=== PATIENT | male | born 1990 | race Caucasian/White ===

== ENCOUNTER 2017-01-07 12:54 | Emergency (ER) | payer OTHER ==
[2017-01-07 13:13] VITALS: BP 121/58; PULSE 75; RESP 16; TEMP 97.6
--- NOTE | 2017-01-07 13:22 | ED ---
GI Bleed HPI - General Chief complaint: GI Bleed Stated complaint: blood in stool Source: patient Mode of arrival: ambulatory Limitations: no limitations - History of Present Illness Initial comments: Patient is a 26 year old male who presents for evaluation for blood in his stool and blood with wiping his bottom after a bowel movement this morning. Past medical history as below. This is the third time this is happened in the past. The 2 previous times it was a single episode and spontaneously resolved on its own. This morning he noticed bright red blood in the stool, in the toilet bowl, and with wiping. He has no known history of hemorrhoids. Denies any rectal trauma. He does however state that he sits down on hard steel benches frequently. Denies any abdominal pain nausea or vomiting. No diarrhea. No changes in diet. States he has a old minimal amount of rectal pain. Also denies fever, chills, headache, changes in vision, URI symptoms, shortness breath, cough, chest pain, pain or burning with urination. - Related Data Home Medications Medication Instructions Recorded Confirmed HYDROcodone/APAP 7.5-325MG [[place] 1 tab PO QID 03/20/16 03/24/16 7.5-325] Previous Rx's Medication Instructions Recorded Sulfamethox-Tmp 800-160Mg [Bactrim 2 each PO Q12HR #56 tab 03/20/16 DS 800-160 mg] Acetaminophen-Codeine 300-30mg 1 each PO Q4H PRN #20 tablet 03/24/16 [Tylenol w/codeine #3] Clindamycin HCl [Cleocin] 300 mg PO Q6H #40 cap 03/24/16 Allergies Allergy/AdvReac Type Severity Reaction Status Date / Time amoxicillin [Amoxicillin] Allergy Rash/Hives Verified 03/24/16 15:57 Penicillins Allergy Rash/Hives Verified 03/24/16 15:57 tramadol AdvReac Severe Unknown Verified 03/24/16 15:57 Review of Systems ROS Statement: Those systems with pertinent positive or pertinent negative responses have been documented in the HPI. ROS Other: All systems not noted in ROS Statement are negative. Past Medical History Past Medical History: Seizure Disorder History of Any Multi-Drug Resistant Organisms: MRSA Date of last positivie culture/infection: 10/14/15 MDRO Source:: rt great toe Past Surgical History: No Surgical Hx Reported Additional Past Surgical History / Comment(s): right big toe amputation Past Psychological History: No Psychological Hx Reported Smoking Status: Current every day smoker Past Alcohol Use History: None Reported Past Drug Use History: Marijuana General Exam Limitations: no limitations General appearance: alert, in no apparent distress, other (Well-appearing) Head exam: Present: atraumatic, normocephalic, normal inspection Eye exam: Present: normal appearance, PERRL, EOMI, other (No conjunctival pallor ). Absent: scleral icterus, conjunctival injection, periorbital swelling ENT exam: Present: normal exam, mucous membranes moist Neck exam: Present: normal inspection. Absent: tenderness, meningismus, lymphadenopathy Respiratory exam: Present: normal lung sounds bilaterally. Absent: respiratory distress, wheezes, rales, rhonchi, stridor Cardiovascular Exam: Present: regular rate, normal rhythm, normal heart sounds. Absent: systolic murmur, diastolic murmur, rubs, gallop, clicks GI/Abdominal exam: Present: soft, normal bowel sounds, other (Abdomen is soft and nontender. No peritoneal signs.). Absent: distended, tenderness, guarding , rebound, rigid Rectal exam: Present: hemorrhoids, other (There are 3, nonthrombosed hemorrhoids at the 3:00, 9:00 and 6 o'clock position. No active bleeding. No erythema. No other masses identified.) Extremities exam: Present: normal inspection, full ROM, normal capillary refill. Absent: tenderness, pedal edema, joint swelling, calf tenderness Back exam: Present: normal inspection Neurological exam: Present: alert, oriented X3, CN II-XII intact Psychiatric exam: Present: normal affect, normal mood Skin exam: Present: warm, dry, intact, normal color. Absent: rash Course Vital Signs 01/07/17 13:08 Temperature 97.6 F Pulse Rate 75 Respiratory 16 Rate Blood Pressure 121/58 O2 Sat by Pulse 95 Oximetry Medical Decision Making - Medical Decision Making Patient presents for single episode of rectal bleeding and blood on toilet paper with wiping. There is clear evidence of nonthrombosed hemorrhoids. I discussed with the patient, recommended sitz baths and Preparation H for the irritation. Encouraged fiber. Increase fluids. No physical exam findings of acute blood loss as his vitals are stable with no conjunctival pallor or change in cap refill (<3 seconds on fingers). Close follow-up with primary care physician. Patient voiced understanding. Will follow-up with primary care physician. Discussed signs and symptoms on when to return to emergency department for further investigation. Disposition Clinical Impression: Hemorrhoids Disposition: HOME SELF-CARE Condition: Good Instructions: Hemorrhoids (ED) Referrals: None,Stated [Primary Care Provider] - 1-2 days Richar Busby MD [STAFF PHYSICIAN] - 1-2 days
== END 2017-01-07 13:35 | disposition home or self-care (01) ==
LOC: EC 12:54
DX: K64.8 Other hemorrhoids (principal); F17.200 Nicotine dependence, unspecified, uncomplicated; Z79.891 Long term (current) use of opiate analgesic; Z88.0 Allergy status to penicillin; Z88.6 Allergy status to analgesic agent
CPT/HCPCS: 99284

== ENCOUNTER 2017-02-25 07:03 | Emergency (ER) | payer OTHER ==
[2017-02-25 07:12] VITALS: BP 106/55; PULSE 102; RESP 20; TEMP 98.2
[2017-02-25] MEDS ORDERED: ORPHENADRINE 30 MG/ML 2 ML VIAL IM STA (07:51)
[2017-02-25] MEDS ORDERED: DEXAMETHASONE SOD PHOSPHATE 10 MG/ML 1 ML VIAL IM STA (07:51)
[2017-02-25] MEDS ORDERED: KETOROLAC 60 MG/2 ML VIAL IM STA (07:52)
--- NOTE | 2017-02-25 07:55 | ED ---
Back Pain HPI - General Chief Complaint: Back Pain/Injury Stated Complaint: back pain Time Seen by Provider: 02/25/17 07:30 Source: patient, RN notes reviewed Limitations: no limitations - History of Present Illness Initial Comments: This is a 27-year-old male history of sciatica liters been dealing with the past year or so who states he had a flareup this morning. 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 He had no problem. He woke up with severe sharp burning type pain starting in his low back going on left buttock into his left leg. He has no urinary or fecal incontinence states his urine is darker. He denies any fevers chills nausea vomiting sweats or dysuria. Loss of function or numbness to his upper or lower extremities. MD Complaint: back pain - Related Data Home Medications Medication Instructions Recorded Confirmed Acetaminophen [Tylenol] 975 mg PO DAILY PRN 01/07/17 01/07/17 Previous Rx's Medication Instructions Recorded Cyclobenzaprine [Flexeril] 10 mg PO TID #14 tab 02/25/17 Ibuprofen 800 mg PO Q6HR PRN #20 tablet 02/25/17 Allergies Allergy/AdvReac Type Severity Reaction Status Date / Time amoxicillin [Amoxicillin] Allergy Rash/Hives Verified 02/25/17 07:12 Penicillins Allergy Rash/Hives Verified 02/25/17 07:12 tramadol AdvReac Severe Unknown Verified 02/25/17 07:12 Review of Systems ROS Statement: Those systems with pertinent positive or pertinent negative responses have been documented in the HPI. ROS Other: All systems not noted in ROS Statement are negative. Past Medical History Past Medical History: Seizure Disorder History of Any Multi-Drug Resistant Organisms: MRSA Date of last positivie culture/infection: 10/14/15 MDRO Source:: rt great toe Past Surgical History: No Surgical Hx Reported Additional Past Surgical History / Comment(s): right big toe amputation Past Psychological History: No Psychological Hx Reported Smoking Status: Current every day smoker Past Alcohol Use History: None Reported Past Drug Use History: Marijuana General Exam - General Exam Comments Initial Comments: This is a well-developed well-nourished awake alert oriented 3 male Limitations: no limitations General appearance: alert, anxious, in distress Head exam: Present: atraumatic, normocephalic, normal inspection Eye exam: Present: normal appearance, PERRL, EOMI. Absent: scleral icterus, conjunctival injection, periorbital swelling ENT exam: Present: normal exam, mucous membranes moist Neck exam: Present: normal inspection. Absent: tenderness, meningismus, lymphadenopathy Respiratory exam: Present: normal lung sounds bilaterally. Absent: respiratory distress, wheezes, rales, rhonchi, stridor Cardiovascular Exam: Present: regular rate, normal rhythm, normal heart sounds. Absent: systolic murmur, diastolic murmur, rubs, gallop, clicks GI/Abdominal exam: Present: soft, normal bowel sounds. Absent: distended, tenderness, guarding, rebound, rigid Rectal exam: Present: deferred Extremities exam: Present: normal inspection, full ROM, tenderness (Tenderness over the left gluteus muscle over the sciatica no step-off or crepitation.), normal capillary refill. Absent: pedal edema, joint swelling, calf tenderness Back exam: Present: normal inspection, paraspinal tenderness (Some mild tenderness to left SI joint palpation no step-off or crepitation noted bony prominence region tenderness.). Absent: CVA tenderness (R), CVA tenderness (L) , muscle spasm, vertebral tenderness, rash noted Neurological exam: Present: alert, oriented X3, CN II-XII intact, reflexes normal. Absent: normal gait, motor sensory deficit Psychiatric exam: Present: normal affect, normal mood Skin exam: Present: warm, dry, intact, normal color. Absent: rash Course Vital Signs 02/25/17 07:10 Temperature 98.2 F Pulse Rate 102 H Respiratory 20 Rate Blood Pressure 106/55 O2 Sat by Pulse 99 Oximetry Medical Decision Making - Medical Decision Making Further workup is indicated at this time. Patient does demonstrate sciatica. He'll be placed on appropriate medications he will be given a note for work today and tomorrow. He is a follow-up with his doctor and return when necessary Disposition Clinical Impression: Sciatica, Strain of lumbar region Disposition: HOME SELF-CARE Condition: Good Instructions: Acute Low Back Pain (ED), Sciatica (ED), Lower Back Exercises (ED ) Prescriptions: Cyclobenzaprine [Flexeril] 10 mg PO TID #14 tab Ibuprofen 800 mg PO Q6HR PRN #20 tablet PRN Reason: Pain Referrals: Camilo Ferreira MD [Primary Care Provider] - 1-2 days
== END 2017-02-25 08:15 | disposition home or self-care (01) ==
LOC: EC 07:03
DX: S39.012A Strain of muscle, fascia and tendon of lower back, initial encounter (principal); M54.42 Lumbago with sciatica, left side; F17.200 Nicotine dependence, unspecified, uncomplicated; Z88.0 Allergy status to penicillin; Z88.6 Allergy status to analgesic agent; X58.XXXA Exposure to other specified factors, initial encounter
CPT/HCPCS: 99283; 96372 ×3; J1100; J2360; J1885

== ENCOUNTER 2017-05-20 07:51 | Emergency (ER) | payer OTHER ==
[2017-05-20 07:56] VITALS: TEMP 97
[2017-05-20] MEDS ORDERED: ORPHENADRINE 30 MG/ML 2 ML VIAL IM STA (08:20)
[2017-05-20] MEDS: KETOROLAC 60 MG/2 ML VIAL IM STA ×2 (08:24→08:26)
--- NOTE | 2017-05-20 08:37 | ED ---
Back Pain HPI - General Chief Complaint: Back Pain/Injury Stated Complaint: BACK PAIN Time Seen by Provider: 05/20/17 08:07 Source: patient, RN notes reviewed, old records reviewed Limitations: no limitations - History of Present Illness Initial Comments: 19-year-old male presents emergency Department chief complaint of lower left- sided back pain. Patient reports that yesterday evening he fell down 3 stairs going down to his basement. Patient reports that since then he activated his sciatic nerve, has a shooting pain that goes down his left leg. Denies any saddle anesthesias. Patient reports no fever or chills or any other associated symptoms. Denies any other injuries related to the fall. Patient states that he could not get up to go to work today due to the pain. Patient denies any recent fever, chills, shortness of breath, chest pain,abdominal pain, nausea vomiting, numbness or tingling, dysuria or hematuria, constipation or diarrhea, headaches or visual changes, or any other current symptoms - Related Data Home Medications Medication Instructions Recorded Confirmed Acetaminophen [Tylenol] 650 mg PO DAILY PRN 01/07/17 05/20/17 Previous Rx's Medication Instructions Recorded Cyclobenzaprine [Flexeril] 10 mg PO TID #20 tab 05/20/17 Dexamethasone 0.75 mg PO DAILY #12 tab 05/20/17 Ibuprofen 600 mg PO TID #20 tablet 05/20/17 Allergies Allergy/AdvReac Type Severity Reaction Status Date / Time amoxicillin [Amoxicillin] Allergy Rash/Hives Verified 05/20/17 08:18 Penicillins Allergy Rash/Hives Verified 05/20/17 08:18 tramadol AdvReac Severe Unknown Verified 05/20/17 08:18 Review of Systems ROS Statement: Those systems with pertinent positive or pertinent negative responses have been documented in the HPI. ROS Other: All systems not noted in ROS Statement are negative. Past Medical History Past Medical History: Seizure Disorder Additional Past Medical History / Comment(s): chronic back pain History of Any Multi-Drug Resistant Organisms: MRSA Date of last positivie culture/infection: 10/14/15 MDRO Source:: rt great toe Past Surgical History: No Surgical Hx Reported Additional Past Surgical History / Comment(s): right big toe amputation Past Psychological History: No Psychological Hx Reported Smoking Status: Current every day smoker Past Alcohol Use History: None Reported Past Drug Use History: None Reported, Marijuana General Exam - General Exam Comments Initial Comments: This is a 27-year-old male. No acute distress. Limitations: no limitations General appearance: alert, in no apparent distress Head exam: Present: atraumatic, normocephalic, normal inspection Eye exam: Present: normal appearance, PERRL, EOMI. Absent: scleral icterus, conjunctival injection, periorbital swelling ENT exam: Present: normal exam, mucous membranes moist Neck exam: Present: normal inspection. Absent: tenderness, meningismus, lymphadenopathy Respiratory exam: Present: normal lung sounds bilaterally. Absent: respiratory distress, wheezes, rales, rhonchi, stridor Cardiovascular Exam: Present: regular rate, normal rhythm, normal heart sounds. Absent: systolic murmur, diastolic murmur, rubs, gallop, clicks GI/Abdominal exam: Present: soft, normal bowel sounds. Absent: distended, tenderness, guarding, rebound, rigid Extremities exam: Present: normal inspection, full ROM, normal capillary refill. Absent: tenderness, pedal edema, joint swelling, calf tenderness Back exam: Present: normal inspection, paraspinal tenderness (Lower left sided lumbar paraspinal tenderness. No smoking and bruising noted. Positive straight leg test.) Neurological exam: Present: alert, oriented X3, CN II-XII intact Psychiatric exam: Present: normal affect, normal mood Skin exam: Present: warm, dry, intact, normal color. Absent: rash Course Vital Signs 05/20/17 07:53 Temperature 97.0 F L Pulse Rate 85 Respiratory 18 Rate Blood Pressure 119/58 O2 Sat by Pulse 96 Oximetry Medical Decision Making - Medical Decision Making 27-year-old male with left sided leg pain and lower back pain after he fell down 3 stairs yesterday. Patient hasbeen bruising noted. Positive straight leg test. Patient was given lumbar spine x-rays. Patient is given IM Norflex and Toradol. Lumbar spine x-rays are reviewed and negative for any acute process. Patient discharged at this time with a prescription for ulcer relaxers and anti-inflammatory medication. Discussed close follow-up with primary care provider. Discussed returning for any concerning signs and Flexeril seizures. Patient nurse's treatment plan will comply. Return parameters were discussed. Disposition Clinical Impression: Contusion of lower back, Sciatica of left side Disposition: HOME SELF-CARE Condition: Good Instructions: Acute Low Back Pain (ED) Additional Instructions: Patient advised to apply heat and ice see her lower back. Take the medications as prescribed. Follow-up with PCP. Return to emergency department if any alarming signs or symptoms occur. Prescriptions: Cyclobenzaprine [Flexeril] 10 mg PO TID #20 tab Dexamethasone 0.75 mg PO DAILY #12 tab Ibuprofen 600 mg PO TID #20 tablet Referrals: Camilo Ferreira MD [Primary Care Provider] - 1-2 days Time of Disposition: 08:35
[2017-05-20 09:28] VITALS: BP 119/58; PULSE 85; RESP 18
--- NOTE | 2017-05-20 09:53 | XR ---
EXAM TYPE: LUMBAR SPINE X RAY SERIES COMPARISON: NONE HISTORY: Lower back pain TECHNIQUE: 4 views are submitted. FINDINGS: Alignment is anatomic. The pedicles are intact. The transverse processes are intact. There is no s pondylolysis or spondylolisthesis. IMPRESSION: 1. No acute process. Recommend follow-up MRI.
== END 2017-05-20 09:38 | disposition home or self-care (01) ==
LOC: EC 07:51
DX: S30.0XXA Contusion of lower back and pelvis, initial encounter (principal); M54.32 Sciatica, left side; F17.200 Nicotine dependence, unspecified, uncomplicated; Z88.0 Allergy status to penicillin; Z88.6 Allergy status to analgesic agent; Z53.20 Procedure and treatment not carried out because of patient's decision for unspecified reasons; W10.9XXA Fall (on) (from) unspecified stairs and steps, initial encounter
CPT/HCPCS: 72100; 99284; 96372; J2360

== ENCOUNTER 2017-10-01 18:42 | Emergency (ER) | payer OTHER ==
[2017-10-01 18:47] VITALS: BP 134/74; PULSE 88; RESP 18; TEMP 96.3
--- NOTE | 2017-10-01 19:29 | ED ---
General Adult HPI - General Chief complaint: Overdose Stated complaint: poss overdose Time Seen by Provider: 10/01/17 18:58 Source: patient, RN notes reviewed, old records reviewed Mode of arrival: wheelchair Limitations: no limitations - History of Present Illness Initial comments: 27-year-old male history of heroin overdose presents after being found in the lobby sleeping. Patient was taking Suboxone 8 mg approximately 2 hours earlier. Denies suicide attempt. Denies any dyspnea. Patient is alert and oriented at the time my evaluation. He has no complaints. Patient denies any IV drug use, denies any other ingested substances. - Related Data Home Medications Medication Instructions Recorded Confirmed No Known Home Medications [No 10/01/17 10/01/17 Known Home Medications] Allergies Allergy/AdvReac Type Severity Reaction Status Date / Time amoxicillin [Amoxicillin] Allergy Rash/Hives Verified 10/01/17 18:47 Penicillins Allergy Rash/Hives Verified 10/01/17 18:47 tramadol AdvReac Severe SEIZURES Verified 10/01/17 19:28 Review of Systems ROS Statement: Those systems with pertinent positive or pertinent negative responses have been documented in the HPI. ROS Other: All systems not noted in ROS Statement are negative. Past Medical History Past Medical History: Seizure Disorder Additional Past Medical History / Comment(s): chronic back pain History of Any Multi-Drug Resistant Organisms: MRSA Date of last positivie culture/infection: 10/14/15 MDRO Source:: rt great toe Past Surgical History: No Surgical Hx Reported Additional Past Surgical History / Comment(s): right big toe amputation Past Psychological History: No Psychological Hx Reported Smoking Status: Current every day smoker Past Alcohol Use History: None Reported Past Drug Use History: None Reported, Marijuana General Exam Limitations: no limitations General appearance: alert, in no apparent distress Head exam: Present: atraumatic, normocephalic Eye exam: Present: normal appearance, PERRL ENT exam: Present: normal exam Neck exam: Present: normal inspection. Absent: tenderness, meningismus Respiratory exam: Present: normal lung sounds bilaterally. Absent: respiratory distress, wheezes Cardiovascular Exam: Present: regular rate, normal rhythm GI/Abdominal exam: Present: soft. Absent: distended, tenderness Rectal exam: Present: deferred Extremities exam: Present: normal inspection, normal capillary refill. Absent: pedal edema, joint swelling Neurological exam: Present: alert, oriented X3, CN II-XII intact. Absent: motor sensory deficit Psychiatric exam: Present: normal affect, normal mood Skin exam: Present: warm, dry, intact. Absent: cyanosis, diaphoretic Course Vital Signs 10/01/17 18:44 Temperature 96.3 F L Pulse Rate 88 Respiratory 18 Rate Blood Pressure 134/74 O2 Sat by Pulse 99 Oximetry Medical Decision Making - Medical Decision Making Patient is observed for 90 minutes, does not require any Narcan. He is awake alert vital signs are stable. He will be discharged. Disposition Clinical Impression: Drug overdose Disposition: HOME SELF-CARE Condition: Fair Instructions: Narcotic Abuse (ED) Referrals: Camilo Ferreira MD [Primary Care Provider] - 1-2 days Time of Disposition: 20:07 Decision Date: 10/01/17 Decision Time: 20:04
== END 2017-10-01 20:11 | disposition home or self-care (01) ==
LOC: EC 18:42
DX: T50.901A Poisoning by unspecified drugs, medicaments and biological substances, accidental (unintentional), initial encounter (principal); F17.200 Nicotine dependence, unspecified, uncomplicated; Z88.0 Allergy status to penicillin; Z88.5 Allergy status to narcotic agent; Z86.14 Personal history of Methicillin resistant Staphylococcus aureus infection
CPT/HCPCS: 99284

== ENCOUNTER 2019-02-08 16:37 | Emergency (ER) | payer OTHER ==
[2019-02-08] MEDS ORDERED: KETOROLAC 30 MG/ML 1 ML VIAL IM STA (20:09)
[2019-02-08] MEDS ORDERED: DIAZEPAM 5 MG/ML 2 ML INJ IM ONE (20:09)
[2019-02-08 20:13] VITALS: BP 112/55; PULSE 66; RESP 18; TEMP 98.3
--- NOTE | 2019-02-08 20:36 | ED ---
Back Pain HPI - General Chief Complaint: Back Pain/Injury Stated Complaint: LOWER BACK PAIN Time Seen by Provider: 02/08/19 18:33 Source: patient Limitations: no limitations - History of Present Illness Initial Comments: 29-year-old male patient presents to emergency department today for evaluation of increased low back pain. Patient states the pain started yesterday while he was at work. Patient states he was bending over when a board when he stood back up the pain started. Patient states it is radiating down his right buttock. Denies any numbness or tingling to the lower trauma this. Denies any saddle anesthesia or loss of bowel or bladder control. Patient states he has had pain in the past and was told that he had sciatica. Patient states the pain is similar to the that episode. He denies any fever or chills with this. Denies any abdominal pain, nausea, or vomiting. States bowel movements have been normal. Patient denies any recent rash, shortness breath, chest pain, constipation, back pain, numbness, tingling, dizziness, weakness, hematuria, dysuria, urinary urgency, urinary frequency, headache, visual changes, or any other complaints. - Related Data Previous Rx's Medication Instructions Recorded OLANZapine [ZyPREXA] 2.5 mg PO HS #14 tab 10/22/17 Baclofen 10 mg PO TID PRN #15 tab 02/08/19 Lidocaine 5% Patch [Lidoderm] 1 patch TOPICAL DAILY #5 patch 02/08/19 predniSONE 50 mg PO DAILY #5 tablet 02/08/19 Allergies Allergy/AdvReac Type Severity Reaction Status Date / Time amoxicillin [Amoxicillin] Allergy Rash/Hives Verified 02/08/19 17:04 Penicillins Allergy Rash/Hives Verified 02/08/19 17:04 tramadol AdvReac Severe SEIZURES Verified 02/08/19 17:04 Review of Systems ROS Statement: Those systems with pertinent positive or pertinent negative responses have been documented in the HPI. ROS Other: All systems not noted in ROS Statement are negative. Past Medical History Past Medical History: Seizure Disorder Additional Past Medical History / Comment(s): chronic back pain History of Any Multi-Drug Resistant Organisms: MRSA Date of last positivie culture/infection: 10/14/15 MDRO Source:: rt great toe Past Surgical History: No Surgical Hx Reported Additional Past Surgical History / Comment(s): right big toe amputation Past Psychological History: No Psychological Hx Reported Smoking Status: Current every day smoker Past Alcohol Use History: None Reported Past Drug Use History: Heroin, Marijuana, Methamphetamine General Exam Limitations: no limitations General appearance: alert, in no apparent distress, other (Physical well- developed, well-nourished adult male patient in no acute distress. Vital signs upon presentation are temperature 97.0F, pulse 78, respirations 16, blood pressure 116/64, pulse ox 99% on room air.) Eye exam: Present: normal appearance, PERRL, EOMI. Absent: scleral icterus, conjunctival injection, periorbital swelling ENT exam: Present: normal exam, normal oropharynx, mucous membranes moist Respiratory exam: Present: normal lung sounds bilaterally. Absent: respiratory distress, wheezes, rales, rhonchi, stridor Cardiovascular Exam: Present: regular rate, normal rhythm, normal heart sounds. Absent: systolic murmur, diastolic murmur, rubs, gallop, clicks GI/Abdominal exam: Present: soft, normal bowel sounds. Absent: distended, tenderness, guarding, rebound, rigid Extremities exam: Present: normal inspection, full ROM, normal capillary refill, other (Skin to the lower extremities is pink, warm, and dry. Cap refills less than 3 seconds. Pedal and posttibial pulses are 2+ and equal bilaterally.). Absent: tenderness, pedal edema, joint swelling, calf tenderness Back exam: Present: normal inspection, vertebral tenderness (Lumbar). Absent: paraspinal tenderness Neurological exam: Present: alert, oriented X3, CN II-XII intact Psychiatric exam: Present: normal affect, normal mood Skin exam: Present: warm, dry, intact, normal color. Absent: rash Course Vital Signs 02/08/19 02/08/19 17:02 20:04 Temperature 97.0 F L 98.3 F Pulse Rate 78 66 Respiratory 16 18 Rate Blood Pressure 116/64 112/55 O2 Sat by Pulse 99 98 Oximetry Medical Decision Making - Medical Decision Making 29-year-old male patient presented to the emergency department today for evaluation of low back pain. Patient states this started yesterday and is bending over at work to loose importance down. Physical examination is unremarkable. He has no concerning symptoms for cauda equina. He'll be given IM medications here in the emergency department and discharged home with prescription for anti-inflammatory, steroid, and muscle relaxer. He is instructed to follow-up with his primary care physician for recheck in 1-2 days. Return parameters were discussed in detail. He verbalizes understanding and agrees with this plan. Disposition Clinical Impression: Acute low back pain, Muscle spasm Disposition: HOME SELF-CARE Condition: Good Instructions (If sedation given, give patient instructions): Acute Low Back Pain (ED), Muscle Spasm (ED) Additional Instructions: Take medications as directed. Perform gentle range of motion exercises. Walk as much possible. Follow-up through primary care physician for recheck in 1-2 days. Return to the emergency department immediately for any new, worsening, or concerning symptoms. Prescriptions: Baclofen 10 mg PO TID PRN #15 tab PRN Reason: Muscle Spasm Lidocaine 5% Patch [Lidoderm] 1 patch TOPICAL DAILY #5 patch predniSONE 50 mg PO DAILY #5 tablet Is patient prescribed a controlled substance at d/c from ED?: No Referrals: Maryam Edge MD [STAFF PHYSICIAN] - 1-2 days Time of Disposition: 20:35
== END 2019-02-08 20:44 | disposition home or self-care (01) ==
LOC: EC 16:37
DX: M62.830 Muscle spasm of back (principal); F17.200 Nicotine dependence, unspecified, uncomplicated; Z88.0 Allergy status to penicillin; Z88.5 Allergy status to narcotic agent; Z86.14 Personal history of Methicillin resistant Staphylococcus aureus infection; Z87.39 Personal history of other diseases of the musculoskeletal system and connective tissue
CPT/HCPCS: 99283; 96372 ×2; J3360; J1885

== ENCOUNTER → 2019-05-18 | Outpatient (CLI) | payer OTHER ==
[2019-05-18 08:31] LABS: INR 1.1 (<1.2); Prothrombin Time 11.7 sec (9.0-12.0)
[2019-05-18 08:33] LABS: Basophils # (A) 0.1 k/uL (0-0.2); Basophils % (A) 1 %; Eosinophils # (A) 0.3 k/uL (0-0.7); Eosinophils % (A) 4 %; HCT 44.4 % (39.0-53.0); HGB 14.9 gm/dL (13.0-17.5); Lymphocytes # (A) 2.2 k/uL (1.0-4.8); Lymphocytes % (A) 28 %; MCH 30.8 pg (25.0-35.0); MCHC 33.5 g/dL (31.0-37.0); Mean Platelet Volume 7.5; Monocytes # (A) 0.7 k/uL (0-1.0); Monocytes % (A) 8 %; Neutrophils # (A) 4.3 k/uL (1.3-7.7); Neutrophils % (A) 56 %; Platelet Count 206 k/uL (150-450); RBC 4.82 m/uL (4.30-5.90); RDW 12.4 % (11.5-15.5); WBC 7.7 k/uL (3.8-10.6)
[2019-05-18 08:40] LABS: Albumin 4.3 g/dL (3.5-5.0); Bilirubin, Delta 0.2 mg/dL (0.0-0.2); Bilirubin,Unconjugated 0.5 mg/dL (0.0-1.1); Total Bilirubin 0.7 mg/dL (0.2-1.3); Total Protein 7.1 g/dL (6.3-8.2)
--- NOTE | 2019-05-18 09:26 | US ---
EXAMINATION TYPE: US liver DATE OF EXAM: 05/18/2019 COMPARISON: CT 2016 CLINICAL HISTORY: B18.2 CHRONIC HEP C. Chronic hepatis C, occasional back pain, weight loss EXAM MEASUREMENTS: Liver Length: 16.4 cm Gallbladder Wall: 0.2 cm CBD: 0.4 cm Right Kidney: 10.8 x 4.2 x 4.7 cm Pancreas: Course and hypoechoic echogenicity Liver: hyperechoic areas in the subcapsular liver do not persist and appear artifactual. Gallbladder: wnl Evidence for sonographic Solis's sign: no CBD: wnl Right Kidney: wnl IMPRESSION: 1. Overall hepatic parenchyma appears homogeneous despite the patient's known hepatocellular disease. There are few areas of hyperechogenicity that do not persist throughout the exam and appear artifact ual. 2. Heterogenous pancreatic echotexture. Correlate with serum amylase and lipase.
[2019-05-19 15:16] LABS: LOG HCV IU/mL 6.49 (<1.08)
== END | disposition home or self-care (01) ==
LOC: RADUSWWP 07:02
PROVIDERS: ATTEND Physician Assistant
DX: K76.9 Liver disease, unspecified (principal); R93.5 Abnormal findings on diagnostic imaging of other abdominal regions, including retroperitoneum; B18.2 Chronic viral hepatitis C
CPT/HCPCS: 36415; 76705; 80076; 85025; 85610; 87522

== ENCOUNTER 2019-06-06 08:06 | Emergency (ER) | payer OTHER ==
[2019-06-06 08:38] VITALS: TEMP 97.9
[2019-06-06] MEDS ORDERED: KETOROLAC 30 MG/ML 1 ML VIAL IM STA (09:03)
--- NOTE | 2019-06-06 09:05 | ED ---
General Adult HPI - General Chief complaint: Extremity Problem,Nontraumatic Stated complaint: right elbow/arm pain Time Seen by Provider: 06/06/19 08:41 Source: patient, RN notes reviewed Mode of arrival: ambulatory Limitations: no limitations - History of Present Illness Initial comments: 29-year-old male with a past medical history of chronic back pain presents to the emergency department for right elbow pain 2 weeks. 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 Patient states that moving his wrist and lifting things is causing pain in his right elbow. Denies any injuries of the right elbow. Denies any fevers or chills. Denies any swelling or erythema.Patient has no other complaints at this time including shortness of breath, chest pain, abdominal pain, nausea or vomiting, headache, or visual changes. - Related Data Previous Rx's Medication Instructions Recorded OLANZapine [ZyPREXA] 2.5 mg PO HS #14 tab 10/22/17 Baclofen 10 mg PO TID PRN #15 tab 02/08/19 Lidocaine 5% Patch [Lidoderm] 1 patch TOPICAL DAILY #5 patch 02/08/19 predniSONE 50 mg PO DAILY #5 tablet 02/08/19 Ibuprofen [Motrin] 600 mg PO Q8HR PRN #20 tab 06/06/19 Allergies Allergy/AdvReac Type Severity Reaction Status Date / Time amoxicillin [Amoxicillin] Allergy Rash/Hives Verified 06/06/19 08:35 Penicillins Allergy Rash/Hives Verified 06/06/19 08:35 tramadol AdvReac Severe SEIZURES Verified 06/06/19 08:35 Review of Systems ROS Statement: Those systems with pertinent positive or pertinent negative responses have been documented in the HPI. ROS Other: All systems not noted in ROS Statement are negative. Past Medical History Past Medical History: Seizure Disorder Additional Past Medical History / Comment(s): chronic back pain History of Any Multi-Drug Resistant Organisms: MRSA Date of last positivie culture/infection: 10/14/15 MDRO Source:: rt great toe Past Surgical History: No Surgical Hx Reported Additional Past Surgical History / Comment(s): right big toe amputation Past Psychological History: No Psychological Hx Reported Smoking Status: Current every day smoker Past Alcohol Use History: None Reported Past Drug Use History: None Reported, Heroin, Marijuana, Methamphetamine General Exam Limitations: no limitations General appearance: alert, in no apparent distress Head exam: Present: atraumatic, normocephalic, normal inspection Eye exam: Present: normal appearance, PERRL, EOMI. Absent: scleral icterus, conjunctival injection, periorbital swelling ENT exam: Present: normal exam, mucous membranes moist Neck exam: Present: normal inspection, full ROM. Absent: tenderness, meningismus, lymphadenopathy Respiratory exam: Present: normal lung sounds bilaterally. Absent: respiratory distress, wheezes, rales, rhonchi, stridor Cardiovascular Exam: Present: regular rate, normal rhythm, normal heart sounds. Absent: systolic murmur, diastolic murmur, rubs, gallop, clicks Extremities exam: Present: full ROM (Full range of motion of the right elbow. Full range motion of the right wrist and fingers in the right hand. Patient does have pain when extending the right wrist.), tenderness (Tenderness is noted to the lateral epicondyle of the right elbow. No erythema or edema. No evidence for infection. No evidence for olecranon bursitis.), normal capillary refill (Capillary refill less than, radial pulse 2+ in the right upper extremity.), other (Sensation intact in the right upper extremity.). Absent: pedal edema, joint swelling (No edema or erythema.), calf tenderness Course Vital Signs 06/06/19 08:35 Temperature 97.9 F Pulse Rate 67 Respiratory 18 Rate Blood Pressure 97/55 O2 Sat by Pulse 98 Oximetry Medical Decision Making - Medical Decision Making HPI as documented. Exam positive for bilateral elbow pain with extension of the wrist. No recent injuries, erythema or edema, no evidence of infection. X-ray was obtained and there is no acute fracture or dislocation. However suspicious for linear foreign body. Patient denies this as being new. Patient's symptoms of tender lateral epicondyles with increased pain with extension and being a construction secretary with repetitive motions is consistent with lateral epicondylitis. Discussed NSAID use and using a tennis elbow brace from the pharmacy. Discussed return if he has any worsening symptoms. Disposition Clinical Impression: Lateral epicondylitis of left elbow Disposition: HOME SELF-CARE Condition: Good Instructions (If sedation given, give patient instructions): Tennis Elbow (ED) Additional Instructions: Please take Motrin and Tylenol for pain. Use tennis elbow brace. Follow-up with orthopedics in one to 2 days. Return to the emergency department if you have any worsening symptoms. Prescriptions: Ibuprofen [Motrin] 600 mg PO Q8HR PRN #20 tab PRN Reason: Pain Is patient prescribed a controlled substance at d/c from ED?: No Referrals: Camilo Ferreira MD [Primary Care Provider] - 1-2 days Han Landaverde DO [Doctor of Osteopathic Medicine] - 1-2 days Time of Disposition: 09:25
--- NOTE | 2019-06-06 09:08 | XR ---
EXAMINATION TYPE: XR elbow complete RT DATE OF EXAM: 06/06/2019 COMPARISON: NONE HISTORY: Pain FINDINGS: Three views of the elbow demonstrate no pathologic joint effusion. The osseous structures are intact . There is no acute fracture or dislocation. Linear metallic density seen anterior to the distal ra dius soft tissues and supracondylar soft tissues lateral IMPRESSION: 1. No acute fracture or dislocation. If symptoms persist follow-up study in 7 to 10 days could be ob tained. 2. Findings suspicious linear foreign body supracondylar lateral region soft tissues right elbow.
[2019-06-06 09:38] VITALS: BP 110/60; PULSE 77; RESP 16
== END 2019-06-06 09:34 | disposition home or self-care (01) ==
LOC: EC 08:06
DX: M77.12 Lateral epicondylitis, left elbow (principal); M25.521 Pain in right elbow; G89.29 Other chronic pain; M54.9 Dorsalgia, unspecified; F17.200 Nicotine dependence, unspecified, uncomplicated; Z88.0 Allergy status to penicillin; Z88.6 Allergy status to analgesic agent; Z89.411 Acquired absence of right great toe; Z86.14 Personal history of Methicillin resistant Staphylococcus aureus infection
CPT/HCPCS: 73080; 99283; 96372; J1885

== ENCOUNTER → 2019-07-01 | Outpatient (CLI) | payer OTHER ==
[2019-07-01 15:57] LABS: African American GFR (CKD) 138.9 (60.0-200.0)
== END | disposition home or self-care (01) ==
LOC: LABWHC1 08:42
PROVIDERS: ATTEND Physician Assistant
DX: B18.2 Chronic viral hepatitis C (principal)
CPT/HCPCS: 36415; 82565

== ENCOUNTER → 2019-08-31 | Outpatient (CLI) | payer OTHER ==
[2019-08-31 10:36] LABS: Basophils % (A) 1 %; Eosinophils # (A) 0.2 k/uL (0-0.7); Eosinophils % (A) 2 %; HCT 42.9 % (39.0-53.0); HGB 14.3 gm/dL (13.0-17.5); Lymphocytes # (A) 2.6 k/uL (1.0-4.8); Lymphocytes % (A) 34 %; MCHC 33.4 g/dL (31.0-37.0); MCV 92.8 fL (80.0-100.0); Mean Platelet Volume 8.1; Monocytes # (A) 0.5 k/uL (0-1.0); Monocytes % (A) 7 %; Neutrophils # (A) 4.1 k/uL (1.3-7.7); Neutrophils % (A) 53 %; Platelet Count 234 k/uL (150-450); RBC 4.63 m/uL (4.30-5.90); RDW 11.9 % (11.5-15.5); WBC 7.7 k/uL (3.8-10.6)
[2019-08-31 16:03] LABS: Albumin 4.5 g/dL (3.80-4.90); Albumin/Globulin Ratio 2.37 (1.60-3.17); Bilirubin, Conjugated 0.2 mg/dL (0.20-0.40); Bilirubin,Unconjugated 0.4 mg/dL; Globulin 1.9 g/dL (1.6-3.3); Total Bilirubin 0.6 mg/dL (0.3-1.2); Total Protein 6.4 g/dL (6.2-8.2)
== END | disposition home or self-care (01) ==
LOC: LABWHC1 09:18
PROVIDERS: ATTEND Physician Assistant
DX: B18.2 Chronic viral hepatitis C (principal)
CPT/HCPCS: 36415; 80076; 85025; 87522

== ENCOUNTER 2019-10-05 10:53 | Day surgery (SDC) | payer OTHER ==
[2019-10-03 18:05] VITALS: BMI 22.1
[~2019-10-05 10:53] MED LIST: LACTATED RINGERS 1,000 ML IV SCH; LIDOCAINE 1% 20 ML VIAL (10MG/ML) FOR IV START INTRADERMA PRN; PROPOFOL 10 MG/ML 20 ML VIAL IV ONE
[2019-10-05 11:16] VITALS: RESP 16; TEMP 97.9
[2019-10-05 13:02] VITALS: BP 96/48; PULSE 55
--- NOTE | 2019-10-05 13:06 | P.PCN ---
Date of Procedure: 10/05/19 Description of Procedure: BRIEF HISTORY: Patient is a 29-year-old male presenting for outpatient colonoscopy for evaluation of rectal bleed. Denies any change in bowel habits, abdominal pain but did have episodes of rectal bleed. PROCEDURE PERFORMED: Colonoscopy. PREOPERATIVE DIAGNOSIS: Rectal bleed, blood per rectum. ESTIMATED BLOOD LOSS: Minimal. IV sedation per Anesthesia. PROCEDURE: After informed consent was obtained, the patient, was brought into the endoscopy unit. IV sedation was administered by Anesthesia under continuous monitoring. Digital rectal examination was normal. Initially the Olympus CF-190 flexible video colonoscope was then inserted in the rectum, gradually advanced into the cecum without any difficulty. Careful examination was performed as the scope was gradually being withdrawn. Ileocecal valve and the appendiceal orifice were visualized and appeared normal. The terminal ileum was intubated and appeared normal. Prep was excellent. Mucosa of the cecum, ascending colon, transverse colon, descending colon, sigmoid colon, and rectum appeared normal. Retroflexion was performed in the rectum and no lesions were seen, Low-grade internal hemorrhoids . The patient tolerated the procedure well. IMPRESSION: Normal-appearing colon from rectum to cecum, and normal-appearing terminal ileum. Low-grade internal hemorrhoids. RECOMMENDATIONS: Findings of this examination were discussed with the patient. Okay to resume diet. Okay to resume medications. Follow-up in gastroenterology clinic as previously scheduled. Discussed local hemorrhoidal care with the patient if further bleeding is noted.
== END 2019-10-05 13:24 | disposition home or self-care (01) ==
LOC: ORWHC2ENDO 10:53
PROVIDERS: ATTEND Internal Medicine
DX: K64.8 Other hemorrhoids (principal); B19.20 Unspecified viral hepatitis C without hepatic coma; Z88.0 Allergy status to penicillin; Z88.5 Allergy status to narcotic agent; Z79.1 Long term (current) use of non-steroidal anti-inflammatories (NSAID); Z79.899 Other long term (current) drug therapy; Z89.411 Acquired absence of right great toe; F17.210 Nicotine dependence, cigarettes, uncomplicated
CPT/HCPCS: 45378; J2704

== ENCOUNTER 2019-10-12 07:25 | Emergency (ER) | payer OTHER ==
[2019-10-12] MEDS ORDERED: SODIUM CHLORIDE 0.9% 1,000 ML IV STA (07:53)
[2019-10-12] MEDS ORDERED: KETOROLAC 30 MG/ML 1 ML VIAL IVP STA (07:54)
--- NOTE | 2019-10-12 07:59 | ED ---
Male Urogenital HPI - General Chief complaint: Urogenital Stated complaint: Kidney stone Time Seen by Provider: 10/12/19 07:39 Source: patient, RN notes reviewed Mode of arrival: ambulatory Limitations: no limitations - History of Present Illness Initial comments: This is a 29-year-old male with a history that includes hep C liver disease asthma and a partial right great toe and crepitation in the past who states for the past 2 days he's had bilateral flank pain which moved up toward his kidneys suspicion right now symptoms radiates up to his shoulder he states it was worse this morning for the most part sharp in nature he also has some urinary he sitancy this morning. He states he has no known history kidney stones but he did have urine with blood in it back when he was about 15 years old. This was never worked up. He states pain is currently about 4/10 in severity he does state he has been treated for hep C and is currently hep C free or his provider. He denies any fevers chills nausea vomiting sweats has no known family history that he is aware of kidney stones or any other disorders. MD Complaint: other - Related Data Home Medications Medication Instructions Recorded Confirmed Ibuprofen [Motrin Ib] 800 mg PO Q6HR PRN 10/03/19 10/12/19 Sofosbuvir/Velpatasvir [Epclusa 1 tab PO DAILY 10/03/19 10/12/19 400 mg-100 mg Tablet] Albuterol Sulfate [Proair Hfa] 2 puff INHALATION RT-Q6H PRN 10/12/19 10/12/19 Previous Rx's Medication Instructions Recorded Cyclobenzaprine [Flexeril] 10 mg PO TID #14 tab 10/12/19 Ibuprofen 800 mg PO Q6HR PRN #20 tablet 10/12/19 Allergies Allergy/AdvReac Type Severity Reaction Status Date / Time amoxicillin [Amoxicillin] Allergy Rash/Hives Verified 10/12/19 08:59 Penicillins Allergy Rash/Hives Verified 10/12/19 08:59 tramadol AdvReac Severe SEIZURES Verified 10/12/19 08:59 Review of Systems ROS Statement: Those systems with pertinent positive or pertinent negative responses have been documented in the HPI. ROS Other: All systems not noted in ROS Statement are negative. Past Medical History Past Medical History: Asthma, Liver Disease, Seizure Disorder Additional Past Medical History / Comment(s): Hx back pain. Hepatitis C, under treatment. Blood in stool. Last seizure 2013 est, prob R/T drug use. History of Any Multi-Drug Resistant Organisms: MRSA Date of last positivie culture/infection: 10/14/15 MDRO Source:: rt great toe Past Surgical History: Orthopedic Surgery Additional Past Surgical History / Comment(s): Right anterior great toe amputation Past Anesthesia/Blood Transfusion Reactions: No Reported Reaction Past Psychological History: No Psychological Hx Reported Smoking Status: Current every day smoker Past Alcohol Use History: None Reported Past Drug Use History: Marijuana - Past Family History Mother Family Medical History: No Reported History General Exam - General Exam Comments Initial Comments: This is a well-developed asthenic appearing male who is awake alert oriented 3 Limitations: no limitations General appearance: alert, in no apparent distress Head exam: Present: atraumatic, normocephalic, normal inspection Eye exam: Present: normal appearance, PERRL, EOMI. Absent: scleral icterus, conjunctival injection, periorbital swelling ENT exam: Present: normal exam, mucous membranes moist Neck exam: Present: normal inspection. Absent: tenderness, meningismus, lymphadenopathy Respiratory exam: Present: normal lung sounds bilaterally. Absent: respiratory distress, wheezes, rales, rhonchi, stridor Cardiovascular Exam: Present: regular rate, normal rhythm, normal heart sounds. Absent: systolic murmur, diastolic murmur, rubs, gallop, clicks GI/Abdominal exam: Present: soft, normal bowel sounds. Absent: distended, tenderness, guarding, rebound, rigid Extremities exam: Present: normal inspection, full ROM, normal capillary refill. Absent: tenderness, pedal edema, joint swelling, calf tenderness Back exam: Present: normal inspection, full ROM, CVA tenderness (R), CVA tenderness (L) (Mild tenderness to percussion over the bilateral kidneys with some paraspinous muscle tenderness in those locations.). Absent: rash noted Neurological exam: Present: alert, oriented X3, CN II-XII intact Psychiatric exam: Present: normal affect, normal mood Skin exam: Present: warm, dry, intact, normal color. Absent: rash Course Vital Signs 10/12/19 07:31 Temperature 97.9 F Pulse Rate 80 Respiratory 18 Rate Blood Pressure 120/64 O2 Sat by Pulse 98 Oximetry Medical Decision Making - Medical Decision Making Patient was feeling improved the current presentation is likely myofascial back pain. He does have a history of sciatica but this is a different type of pain. He will be discharged on appropriate medication we did discuss this he will follow-up with his doctor and return if needed. - Lab Data Result diagrams: 10/12/19 08:15 10/12/19 08:15 Lab Results 10/12/19 10/12/19 10/12/19 Range/Units 08:15 08:15 08:43 WBC 7.2 (3.8-10.6) k/uL RBC 4.60 (4.30-5.90) m/uL Hgb 14.3 (13.0-17.5) gm/dL Hct 42.4 (39.0-53.0) % MCV 92.1 (80.0-100.0) fL MCH 31.1 (25.0-35.0) pg MCHC 33.8 (31.0-37.0) g/dL RDW 12.0 (11.5-15.5) % Plt Count 191 (150-450) k/uL Neutrophils % 61 % Lymphocytes % 24 % Monocytes % 9 % Eosinophils % 2 % Basophils % 1 % Neutrophils # 4.4 (1.3-7.7) k/uL Lymphocytes # 1.7 (1.0-4.8) k/uL Monocytes # 0.6 (0-1.0) k/uL Eosinophils # 0.1 (0-0.7) k/uL Basophils # 0.0 (0-0.2) k/uL Sodium 140 (137-145) mmol/L Potassium 4.3 (3.5-5.1) mmol/L Chloride 107 (98-107) mmol/L Carbon Dioxide 26 (22-30) mmol/L Anion Gap 7 mmol/L BUN 15 (9-20) mg/dL Creatinine 0.71 (0.66-1.25) mg/dL Est GFR (CKD-EPI)AfAm >90 (>60 ml/min/1.73 sqM) Est GFR (CKD-EPI)NonAf >90 (>60 ml/min/1.73 sqM) Glucose 86 (74-99) mg/dL Calcium 9.3 (8.4-10.2) mg/dL Magnesium 1.9 (1.6-2.3) mg/dL Total Bilirubin 0.8 (0.2-1.3) mg/dL AST 41 (17-59) U/L ALT 30 (4-49) U/L Alkaline Phosphatase 50 (38-126) U/L Total Protein 7.2 (6.3-8.2) g/dL Albumin 4.3 (3.5-5.0) g/dL Urine Color Yellow Urine Appearance Clear (Clear) Urine pH 7.5 (5.0-8.0) Ur Specific [place] 1.025 (1.001-1.035) Urine Protein Trace H (Negative) Urine Glucose (UA) Negative (Negative) Urine Ketones 1+ H (Negative) Urine Blood Negative (Negative) Urine Nitrite Negative (Negative) Urine Bilirubin Negative (Negative) Urine Urobilinogen 2.0 (<2.0) mg/dL Ur Leukocyte Esterase Negative (Negative) - Radiology Data Radiology results: report reviewed (I did review the imaging and report no acute findings are seen no radiologic evidence of kidney stone.), image reviewed Disposition Clinical Impression: Back pain of thoracolumbar region, Myofascial muscle pain Disposition: HOME SELF-CARE Condition: Good Instructions (If sedation given, give patient instructions): Acute Low Back Pain (ED), Lower Back Exercises (ED) Additional Instructions: Medication prescription sent to your peferred pharmacy Prescriptions: Cyclobenzaprine [Flexeril] 10 mg PO TID #14 tab Ibuprofen 800 mg PO Q6HR PRN #20 tablet PRN Reason: Pain Is patient prescribed a controlled substance at d/c from ED?: No Referrals: Camilo Ferreira MD [Primary Care Provider] - 1-2 days
--- NOTE | 2019-10-12 08:34 | XR ---
EXAMINATION TYPE: XR KUB portable DATE OF EXAM: 10/12/2019 8:28 AM CLINICAL HISTORY: Bilateral flank pain. TECHNIQUE: Two Upright KUB images of the abdomen are obtained. COMPARISON: Abdominal x-ray September 28, 2013. CT abdomen and pelvis January 12, 2016.. FINDINGS: Gas is seen in nondistended stomach. Scattered gas is seen in non-distended small bowel loo ps. Gas and fecal material is seen in non-distended colon. There is no visceromegaly, pneumoperitoneu m, or abnormal calcification appreciated. The lung bases are clear and the osseous structures are int act. IMPRESSION: No definitive nephrolithiasis. Overall nonobstructive bowel gas pattern.
[2019-10-12 08:36] LABS: Basophils % (A) 1 %; Eosinophils # (A) 0.1 k/uL (0-0.7); Eosinophils % (A) 2 %; HCT 42.4 % (39.0-53.0); HGB 14.3 gm/dL (13.0-17.5); Lymphocytes # (A) 1.7 k/uL (1.0-4.8); Lymphocytes % (A) 24 %; MCH 31.1 pg (25.0-35.0); MCHC 33.8 g/dL (31.0-37.0); MCV 92.1 fL (80.0-100.0); Mean Platelet Volume 8.2; Monocytes # (A) 0.6 k/uL (0-1.0); Monocytes % (A) 9 %; Neutrophils # (A) 4.4 k/uL (1.3-7.7); Neutrophils % (A) 61 %; Platelet Count 191 k/uL (150-450); WBC 7.2 k/uL (3.8-10.6)
[2019-10-12 08:54] LABS: ALT 30 U/L (4-49); AST 41 U/L (17-59); African American GFR (CKD) >90 (>60 ml/min/1.73 sqM); Albumin 4.3 g/dL (3.5-5.0); Alkaline Phosphatase 50 U/L (38-126); Anion Gap 7 mmol/L; Blood Urea Nitrogen 15 mg/dL (9-20); Calcium 9.3 mg/dL (8.4-10.2); Carbon Dioxide 26 mmol/L (22-30); Chloride 107 mmol/L (98-107); Glucose 86 mg/dL (74-99); Magnesium 1.9 mg/dL (1.6-2.3); Non-African American GFR(CKD) >90 (>60 ml/min/1.73 sqM); Potassium 4.3 mmol/L (3.5-5.1); Sodium 140 mmol/L (137-145); Total Bilirubin 0.8 mg/dL (0.2-1.3); Total Protein 7.2 g/dL (6.3-8.2)
[2019-10-12 09:01] LABS: Appearance,Urine Clear (Clear); Bilirubin,Urine Negative (Negative); Blood,Urine Negative (Negative); Color,Urine Yellow; Glucose,Urine (UA) Negative (Negative); Ketones,Urine 1+ (Negative); Leukocyte Esterase,Urine Negative (Negative); Nitrite,Urine Negative (Negative); PH, Urine 7.5 (5.0-8.0); Protein,Urine Trace (Negative); Specific Gravity,Urine 1.025 (1.001-1.035)
[2019-10-12 09:56] VITALS: BP 116/55; PULSE 69; RESP 20; TEMP 97.7
== END 2019-10-12 09:47 | disposition home or self-care (01) ==
LOC: EC 07:25
DX: M79.18 Myalgia, other site (principal); R53.1 Weakness; R39.11 Hesitancy of micturition; B19.20 Unspecified viral hepatitis C without hepatic coma; J45.909 Unspecified asthma, uncomplicated; F17.200 Nicotine dependence, unspecified, uncomplicated; Z88.0 Allergy status to penicillin; Z88.5 Allergy status to narcotic agent; Z79.899 Other long term (current) drug therapy; Z86.14 Personal history of Methicillin resistant Staphylococcus aureus infection; Z87.39 Personal history of other diseases of the musculoskeletal system and connective tissue
CPT/HCPCS: 99284; 96374; 96361 ×2; 36415; 80053; 83735; 85025; 81003; 74018; J1885

== ENCOUNTER 2019-10-25 15:05 | Emergency (ER) | payer OTHER ==
[2019-10-25 15:24] VITALS: BP 108/58; PULSE 70; RESP 16; TEMP 97.7
--- NOTE | 2019-10-25 15:57 | XR ---
EXAMINATION TYPE: XR finger LT DATE OF EXAM: 10/25/2019 COMPARISON: NONE HISTORY: Pain TECHNIQUE: Three views are submitted. FINDINGS: The osseous structures are intact. The joint spaces are preserved and there is no acute fracture or dislocation. There is a well corticated bony density along the volar surface of the middle phalanx w hich appears chronic. IMPRESSION: 1. No definite acute fracture or dislocation if symptoms persist, follow-up study in 7 to 10 days wo uld be suggested. Well-corticated bony density off the volar surface base middle phalanx likely is ch ronic and should be correlated with point tenderness.
--- NOTE | 2019-10-25 16:08 | ED ---
Upper Extremity HPI - General Chief Complaint: Extremity Injury, Upper Stated Complaint: finger injury Time Seen by Provider: 10/25/19 15:26 Source: patient, RN notes reviewed Mode of arrival: ambulatory Limitations: no limitations - History of Present Illness Initial Comments: 29-year-old male present emergency from chief complaint of left hand finger i njury. Patient states that he was using a nail gun it ricocheted off piece of wood into his left hand index finger. His tetanus is up-to-date within last 5 years no paresthesias. Patient states is painful to move his finger there is full range of motion patient offers no other complaints. - Related Data Home Medications Medication Instructions Recorded Confirmed Ibuprofen [Motrin Ib] 800 mg PO Q6HR PRN 10/03/19 10/12/19 Sofosbuvir/Velpatasvir [Epclusa 1 tab PO DAILY 10/03/19 10/12/19 400 mg-100 mg Tablet] Albuterol Sulfate [Proair Hfa] 2 puff INHALATION RT-Q6H PRN 10/12/19 10/12/19 Previous Rx's Medication Instructions Recorded Cyclobenzaprine [Flexeril] 10 mg PO TID #14 tab 10/12/19 Ibuprofen 800 mg PO Q6HR PRN #20 tablet 10/12/19 Cephalexin [Keflex] 500 mg PO Q6HR #28 cap 10/25/19 Allergies Allergy/AdvReac Type Severity Reaction Status Date / Time amoxicillin [Amoxicillin] Allergy Rash/Hives Verified 10/12/19 08:59 Penicillins Allergy Rash/Hives Verified 10/12/19 08:59 tramadol AdvReac Severe SEIZURES Verified 10/12/19 08:59 Review of Systems ROS Statement: Those systems with pertinent positive or pertinent negative responses have been documented in the HPI. ROS Other: All systems not noted in ROS Statement are negative. Past Medical History Past Medical History: Asthma, Liver Disease, Seizure Disorder Additional Past Medical History / Comment(s): Hx back pain. Hepatitis C, under treatment. Blood in stool. Last seizure 2013 est, prob R/T drug use. History of Any Multi-Drug Resistant Organisms: MRSA Date of last positivie culture/infection: 10/14/15 MDRO Source:: rt great toe Past Surgical History: Orthopedic Surgery Additional Past Surgical History / Comment(s): Right anterior great toe amputation Past Anesthesia/Blood Transfusion Reactions: No Reported Reaction Past Psychological History: No Psychological Hx Reported Smoking Status: Current every day smoker Past Alcohol Use History: None Reported Past Drug Use History: Marijuana - Past Family History Mother Family Medical History: No Reported History General Exam Limitations: no limitations General appearance: alert, in no apparent distress Head exam: Present: atraumatic, normocephalic, normal inspection Neck exam: Present: normal inspection, full ROM. Absent: tenderness, meningismus, lymphadenopathy Respiratory exam: Present: normal lung sounds bilaterally. Absent: respiratory distress, wheezes, rales, rhonchi, stridor Cardiovascular Exam: Present: regular rate, normal rhythm, normal heart sounds. Absent: systolic murmur, diastolic murmur, rubs, gallop, clicks Extremities exam: Present: other (Left hand index finger there is a small pun cture wound between the MCP and PIP patient has full range of motion moderate swelling and mild erythema neurovascular intact) Neurological exam: Present: reflexes normal. Absent: motor sensory deficit Psychiatric exam: Present: normal affect, normal mood Course Vital Signs 10/25/19 15:20 Temperature 97.7 F Pulse Rate 70 Respiratory 16 Rate Blood Pressure 108/58 O2 Sat by Pulse 97 Oximetry Medical Decision Making - Medical Decision Making X-ray does not show any evidence of acute fracture or bony injury there is some old corticated area though he is not tender in this region. Patient will be placed on antibiotics or concern infection secondary to puncture wound. Return parameters were discussed. Disposition Clinical Impression: Injury of finger by nail gun Disposition: HOME SELF-CARE Condition: Stable Instructions (If sedation given, give patient instructions): Puncture Wound (ED) Additional Instructions: Please return to the Emergency Department if symptoms worsen or any other concerns. Prescriptions: Cephalexin [Keflex] 500 mg PO Q6HR #28 cap Is patient prescribed a controlled substance at d/c from ED?: No Referrals: Camilo Ferreira MD [Primary Care Provider] - 1-2 days Time of Disposition: 16:06
== END 2019-10-25 16:20 | disposition home or self-care (01) ==
LOC: EC 15:05
DX: S69.92XA Unspecified injury of left wrist, hand and finger(s), initial encounter (principal); J45.909 Unspecified asthma, uncomplicated; F17.200 Nicotine dependence, unspecified, uncomplicated; Z88.0 Allergy status to penicillin; Z88.5 Allergy status to narcotic agent; Z89.411 Acquired absence of right great toe; W29.4XXA Contact with nail gun, initial encounter
CPT/HCPCS: 99283

== ENCOUNTER 2020-03-04 22:27 | Emergency (ER) | payer OTHER ==
[2020-03-04 22:40] VITALS: RESP 18; TEMP 98.1
--- NOTE | 2020-03-04 23:19 | XR ---
EXAMINATION TYPE: XR KUB DATE OF EXAM: 03/04/2020 COMPARISON: 10/12/2019 HISTORY: Flank pain TECHNIQUE: 2 views FINDINGS: 2 views upright show no sign of intestinal obstruction or pneumoperitoneum. Fecal pattern i s normal. Lung bases are clear. There are no pathologic calcifications over the kidneys. IMPRESSION: Nonacute abdomen. No change.
[2020-03-04 23:23] LABS: Amorphous Sediment,Urine Rare /hpf; RBC,Urine 1 /hpf (0-5); WBC,Urine 4 /hpf (0-5)
[2020-03-04 23:31] LABS: Appearance,Urine Clear (Clear); Color,Urine Yellow; Glucose,Urine (UA) Negative (Negative); Protein,Urine Negative (Negative)
[2020-03-04 23:32] LABS: Bilirubin,Urine Negative (Negative); Blood,Urine Negative (Negative); Ketones,Urine Negative (Negative); Leukocyte Esterase,Urine Negative (Negative); Nitrite,Urine Negative (Negative); Urobilinogen,Urine <2.0 mg/dL (<2.0)
--- NOTE | 2020-03-05 00:01 | ED ---
Abdominal Pain HPI - General Chief Complaint: Abdominal Pain Stated Complaint: Abd Pain Time Seen by Provider: 03/04/20 22:56 Source: patient Mode of arrival: ambulatory Limitations: no limitations - History of Present Illness Initial Comments: 30-year-old male patient presents to the emergency department today for evaluation of right lower quadrant abdominal pain. Patient states his been having this back pain to the right lower quadrant for the last week. Patient states it is very mild. Denies any vomiting, nausea, diarrhea or constipation. Denies fever or chills with this. Denies any difficulty with urination. Denies history of abdominal surgery. He denies any pain radiation through to his back. Patient denies any recent rash, cough, shortness of breath, chest pain, numbness, tingling, dizziness, weakness, hematuria, dysuria, urinary urgency, urinary frequency, headache, visual changes, or any other complaints. - Related Data Home Medications Medication Instructions Recorded Confirmed Ibuprofen [Motrin Ib] 800 mg PO Q6HR PRN 10/03/19 10/12/19 Sofosbuvir/Velpatasvir [Epclusa 1 tab PO DAILY 10/03/19 10/12/19 400 mg-100 mg Tablet] Albuterol Sulfate [Proair Hfa] 2 puff INHALATION RT-Q6H PRN 10/12/19 10/12/19 Previous Rx's Medication Instructions Recorded Cyclobenzaprine [Flexeril] 10 mg PO TID #14 tab 10/12/19 Ibuprofen 800 mg PO Q6HR PRN #20 tablet 10/12/19 Cephalexin [Keflex] 500 mg PO Q6HR #28 cap 10/25/19 Allergies Allergy/AdvReac Type Severity Reaction Status Date / Time amoxicillin [Amoxicillin] Allergy Rash/Hives Verified 10/12/19 08:59 Penicillins Allergy Rash/Hives Verified 10/12/19 08:59 tramadol AdvReac Severe SEIZURES Verified 10/12/19 08:59 Review of Systems ROS Statement: Those systems with pertinent positive or pertinent negative responses have been documented in the HPI. ROS Other: All systems not noted in ROS Statement are negative. Past Medical History Past Medical History: Asthma, Liver Disease, Seizure Disorder Additional Past Medical History / Comment(s): Hx back pain. Hepatitis C, under treatment. Blood in stool. Last seizure 2013 est, prob R/T drug use. History of Any Multi-Drug Resistant Organisms: MRSA Date of last positivie culture/infection: 10/14/15 MDRO Source:: rt great toe Past Surgical History: Orthopedic Surgery Additional Past Surgical History / Comment(s): Right anterior great toe amputat ion Past Anesthesia/Blood Transfusion Reactions: No Reported Reaction Past Psychological History: No Psychological Hx Reported Smoking Status: Current every day smoker Past Alcohol Use History: Occasional Past Drug Use History: Marijuana - Past Family History Mother Family Medical History: No Reported History General Exam Limitations: no limitations General appearance: alert, in no apparent distress, other (This is a well- developed, well-nourished adult male patient in no acute distress. Vital signs upon presentation are temperature 98.1F, pulse 56, respirations 18, blood pressure 127/71, pulse ox 96% on room air.) Eye exam: Present: normal appearance, PERRL, EOMI. Absent: scleral icterus, conjunctival injection, periorbital swelling ENT exam: Present: normal exam, normal oropharynx, mucous membranes moist Respiratory exam: Present: normal lung sounds bilaterally. Absent: respiratory distress, wheezes, rales, rhonchi, stridor Cardiovascular Exam: Present: regular rate, normal rhythm, normal heart sounds. Absent: systolic murmur, diastolic murmur, rubs, gallop, clicks GI/Abdominal exam: Present: soft, normal bowel sounds. Absent: distended, tenderness, guarding, rebound, rigid Neurological exam: Present: alert, oriented X3, CN II-XII intact Psychiatric exam: Present: normal affect, normal mood Skin exam: Present: warm, dry, intact, normal color. Absent: rash Course Vital Signs 03/04/20 03/05/20 22:37 00:04 Temperature 98.1 F Pulse Rate 56 L 64 Respiratory 18 18 Rate Blood Pressure 127/71 115/47 O2 Sat by Pulse 96 100 Oximetry Medical Decision Making - Medical Decision Making 30-year-old male patient presents to the emergency department today for evaluation of right lower quadrant abdominal pain. He reports the pain is vague. Denies vomiting, fever, or diarrhea. Abdominal exam is unremarkable, there is no tenderness. No CVA tenderness. Her analysis is negative. KUB is negative. He'll be discharged follow-up with his primary care physician for recheck in 1-2 days. Return parameters were discussed in detail. He verbalizes understanding and agrees with this plan. - Lab Data Lab Results 03/04/20 Range/Units 23:07 Urine Color Yellow Urine Appearance Clear (Clear) Urine pH 6.0 (5.0-8.0) Ur Specific [place] 1.020 (1.001-1.035) Urine Protein Negative (Negative) Urine Glucose (UA) Negative (Negative) Urine Ketones Negative (Negative) Urine Blood Negative (Negative) Urine Nitrite Negative (Negative) Urine Bilirubin Negative (Negative) Urine Urobilinogen <2.0 (<2.0) mg/dL Ur Leukocyte Esterase Negative (Negative) Urine RBC 1 (0-5) /hpf Urine WBC 4 (0-5) /hpf Amorphous Sediment Rare H (None) /hpf Disposition Clinical Impression: Abdominal pain Disposition: HOME SELF-CARE Condition: Good Instructions (If sedation given, give patient instructions): Abdominal Pain (ED) Additional Instructions: Follow up with your primary care physician for recheck in 1-2 days. Return to the emergency department for any new, worsening, or concerning symptoms. Is patient prescribed a controlled substance at d/c from ED?: No Referrals: Camilo Ferreira MD [Primary Care Provider] - 1-2 days Time of Disposition: 00:01
[2020-03-05 00:05] VITALS: BP 115/47; PULSE 64
== END 2020-03-05 00:08 | disposition home or self-care (01) ==
LOC: EC 22:27
DX: R10.31 Right lower quadrant pain (principal); J45.909 Unspecified asthma, uncomplicated; B19.20 Unspecified viral hepatitis C without hepatic coma; F17.200 Nicotine dependence, unspecified, uncomplicated; Z79.51 Long term (current) use of inhaled steroids; Z79.899 Other long term (current) drug therapy; Z88.0 Allergy status to penicillin; Z88.5 Allergy status to narcotic agent; Z86.14 Personal history of Methicillin resistant Staphylococcus aureus infection
CPT/HCPCS: 74018; 81003; 99284

== ENCOUNTER 2020-10-19 08:44 | Emergency (ER) | payer OTHER ==
[2020-10-19 08:48] VITALS: BP 120/61; PULSE 75; RESP 18; TEMP 98.2
--- NOTE | 2020-10-19 09:12 | ED ---
General Adult HPI - General Chief complaint: Skin/Abscess/Foreign Body Stated complaint: Skin Issue Time Seen by Provider: 10/19/20 09:00 Source: patient, RN notes reviewed Mode of arrival: ambulatory Limitations: no limitations - History of Present Illness Initial comments: This a 30-year-old male presents emergency Department chief complaint rash on h is face. Patient states been dealing with this has been trying topical hydrocortisone cream which has not been helping. He states he keeps spreading today. he states his skin is flaking, there is some crusting noted to the area. No fevers or chills denies any other complaints. - Related Data Home Medications Medication Instructions Recorded Confirmed Ibuprofen [Motrin Ib] 800 mg PO Q6HR PRN 10/03/19 10/12/19 Sofosbuvir/Velpatasvir [Epclusa 1 tab PO DAILY 10/03/19 10/12/19 400 mg-100 mg Tablet] Albuterol Sulfate [Proair Hfa] 2 puff INHALATION RT-Q6H PRN 10/12/19 10/12/19 Previous Rx's Medication Instructions Recorded Cyclobenzaprine [Flexeril] 10 mg PO TID #14 tab 10/12/19 Ibuprofen 800 mg PO Q6HR PRN #20 tablet 10/12/19 Cephalexin [Keflex] 500 mg PO Q6HR #28 cap 10/25/19 Cephalexin [Keflex] 500 mg PO Q6HR #40 cap 10/19/20 Mupirocin 2% Oint [Bactroban 2% 1 applic TOPICAL TID #22 gm 10/19/20 Oint] Allergies Allergy/AdvReac Type Severity Reaction Status Date / Time amoxicillin [Amoxicillin] Allergy Rash/Hives Verified 10/19/20 08:48 Penicillins Allergy Rash/Hives Verified 10/19/20 08:48 tramadol AdvReac Severe SEIZURES Verified 10/19/20 08:48 Review of Systems ROS Statement: Those systems with pertinent positive or pertinent negative responses have been documented in the HPI. ROS Other: All systems not noted in ROS Statement are negative. Past Medical History Past Medical History: Asthma, Liver Disease, Seizure Disorder Additional Past Medical History / Comment(s): Hx back pain. Hepatitis C, under treatment. Blood in stool. Last seizure 2013 est, prob R/T drug use. History of Any Multi-Drug Resistant Organisms: MRSA Date of last positivie culture/infection: 10/14/15 MDRO Source:: rt great toe Past Surgical History: Orthopedic Surgery Additional Past Surgical History / Comment(s): Right anterior great toe amputation Past Anesthesia/Blood Transfusion Reactions: No Reported Reaction Past Psychological History: No Psychological Hx Reported Smoking Status: Current every day smoker Past Alcohol Use History: Occasional Past Drug Use History: Marijuana - Past Family History Mother Family Medical History: No Reported History General Exam Limitations: no limitations General appearance: alert, in no apparent distress Head exam: Present: atraumatic, normocephalic, normal inspection Eye exam: Present: normal appearance, PERRL, EOMI. Absent: scleral icterus, conjunctival injection, periorbital swelling ENT exam: Present: normal exam, normal oropharynx, mucous membranes moist Neck exam: Present: normal inspection, full ROM. Absent: tenderness, meningismus, lymphadenopathy Respiratory exam: Present: normal lung sounds bilaterally. Absent: respiratory distress, wheezes, rales, rhonchi, stridor Cardiovascular Exam: Present: regular rate, normal rhythm, normal heart sounds. Absent: systolic murmur, diastolic murmur, rubs, gallop, clicks Skin exam: Present: warm, dry, rash (Patchy areas of erythematous, yellow crusting skin on the face noted) Course Vital Signs 10/19/20 08:46 Temperature 98.2 F Pulse Rate 75 Respiratory 18 Rate Blood Pressure 120/61 O2 Sat by Pulse 99 Oximetry Medical Decision Making - Medical Decision Making Patient has rash on his face consistent with staph infection. Impetigo. Patient we given topical and oral antibiotics as it is diffusely spread on his face. Disposition Clinical Impression: Impetigo Disposition: HOME SELF-CARE Condition: Stable Instructions (If sedation given, give patient instructions): Impetigo (ED) Additional Instructions: Please return to the Emergency Department if symptoms worsen or any other concerns. Prescriptions: Mupirocin 2% Oint [Bactroban 2% Oint] 1 applic TOPICAL TID #22 gm Cephalexin [Keflex] 500 mg PO Q6HR #40 cap Is patient prescribed a controlled substance at d/c from ED?: No Referrals: Camilo Ferreira MD [Primary Care Provider] - 1-2 days Time of Disposition: 09:11
== END 2020-10-19 09:27 | disposition home or self-care (01) ==
LOC: EC 08:44
DX: L01.00 Impetigo, unspecified (principal); B19.20 Unspecified viral hepatitis C without hepatic coma; M54.9 Dorsalgia, unspecified; J45.909 Unspecified asthma, uncomplicated; F17.200 Nicotine dependence, unspecified, uncomplicated; Z79.899 Other long term (current) drug therapy; Z88.0 Allergy status to penicillin; Z88.5 Allergy status to narcotic agent
CPT/HCPCS: 99282

== ENCOUNTER 2021-07-05 05:23 | Emergency (ER) | payer OTHER ==
[2021-07-05 05:31] VITALS: RESP 18
[2021-07-05] MEDS ORDERED: IBUPROFEN 800 MG TAB PO STA (06:06)
[2021-07-05] MEDS ORDERED: ACETAMINOPHEN TAB 500 MG TAB PO STA (06:06)
[2021-07-05] MEDS ORDERED: DEXAMETHASONE SOD PHOSPHATE 10 MG/ML 1 ML VIAL IM STA (06:06)
--- NOTE | 2021-07-05 06:08 | ED ---
ENT HPI - General Chief complaint: ENT Stated complaint: sore throat,body aches,diarrhea Time Seen by Provider: 07/05/21 05:28 Source: patient, RN notes reviewed, old records reviewed Mode of arrival: ambulatory Limitations: no limitations - History of Present Illness Initial comments: This is a 31-year-old male to emergency for today. Patient presents today for sore throat with worsening pain with swelling. No recent travel history or sick contacts. No other significant complaints. Patient has no recent travel history or sick contacts. Patient states he has history of symptoms in the past this feels the same. Again admits to chills and body aches. No coronavirus exposures. MD complaint: sore throat -: days(s) Location: throat Severity: moderate Severity scale (1-10): 4 Quality: stabbing, aching Consistency: constant Improves with: none Worsens with: swallowing Context-Epistaxis: history of similar Associated Symptoms: pain with swallowing, sore throat - Related Data Home Medications Medication Instructions Recorded Confirmed Ibuprofen [Motrin Ib] 800 mg PO Q6HR PRN 10/03/19 10/12/19 Sofosbuvir/Velpatasvir [Epclusa 1 tab PO DAILY 10/03/19 10/12/19 400 mg-100 mg Tablet] Albuterol Sulfate [Proair Hfa] 2 puff INHALATION RT-Q6H PRN 10/12/19 10/12/19 Previous Rx's Medication Instructions Recorded Cyclobenzaprine [Flexeril] 10 mg PO TID #14 tab 10/12/19 Ibuprofen 800 mg PO Q6HR PRN #20 tablet 10/12/19 Cephalexin [Keflex] 500 mg PO Q6HR #28 cap 10/25/19 Cephalexin [Keflex] 500 mg PO Q6HR #40 cap 10/19/20 Mupirocin 2% Oint [Bactroban 2% 1 applic TOPICAL TID #22 gm 10/19/20 Oint] Azithromycin [Zithromax Z-pack (6 0 mg PO DIRECTED 5 Days #6 tab 07/05/21 tabs)] Allergies Allergy/AdvReac Type Severity Reaction Status Date / Time amoxicillin [Amoxicillin] Allergy Rash/Hives Verified 07/05/21 05:31 Penicillins Allergy Rash/Hives Verified 07/05/21 05:31 tramadol AdvReac Severe SEIZURES Verified 07/05/21 05:31 Review of Systems ROS Statement: Those systems with pertinent positive or pertinent negative responses have been documented in the HPI. ROS Other: All systems not noted in ROS Statement are negative. Past Medical History Past Medical History: Asthma, Liver Disease, Seizure Disorder Additional Past Medical History / Comment(s): Hx back pain. Hepatitis C, under treatment. Blood in stool. Last seizure 2013 est, prob R/T drug use. History of Any Multi-Drug Resistant Organisms: MRSA Date of last positivie culture/infection: 10/14/15 MDRO Source:: rt great toe Past Surgical History: Orthopedic Surgery Additional Past Surgical History / Comment(s): Right anterior great toe amputation Past Anesthesia/Blood Transfusion Reactions: No Reported Reaction Past Psychological History: No Psychological Hx Reported Smoking Status: Current every day smoker Past Alcohol Use History: Occasional Past Drug Use History: Marijuana - Past Family History Mother Family Medical History: No Reported History General Exam General appearance: alert, in no apparent distress Head exam: Present: atraumatic, normocephalic, normal inspection Eye exam: Present: normal appearance, PERRL, EOMI. Absent: scleral icterus, conjunctival injection, periorbital swelling ENT exam: Present: normal exam, mucous membranes moist, other (Significant pharyngeal edema erythema and exudate) Neck exam: Present: normal inspection. Absent: tenderness, meningismus, lymphadenopathy Respiratory exam: Present: normal lung sounds bilaterally. Absent: respiratory distress, wheezes, rales, rhonchi, stridor Cardiovascular Exam: Present: regular rate, normal rhythm, normal heart sounds. Absent: systolic murmur, diastolic murmur, rubs, gallop, clicks GI/Abdominal exam: Present: soft, normal bowel sounds. Absent: distended, tenderness, guarding, rebound, rigid Extremities exam: Present: normal inspection, full ROM, normal capillary refill. Absent: tenderness, pedal edema, joint swelling, calf tenderness Back exam: Present: normal inspection Neurological exam: Present: alert, oriented X3, CN II-XII intact Psychiatric exam: Present: normal affect, normal mood Skin exam: Present: warm, dry, intact, normal color. Absent: rash Course Vital Signs 07/05/21 07/05/21 05:26 06:33 Temperature 97.7 F 98.9 F Pulse Rate 91 92 Respiratory 18 18 Rate Blood Pressure 106/61 125/75 O2 Sat by Pulse 98 98 Oximetry - Reevaluation(s) Reevaluation #1: Medical record is reviewed Patient symptoms are improved here in the ER and remained improved Patient informed results and questions answered Medical Decision Making - Medical Decision Making 31 male to the emergency department for evaluation of fever bodyaches. Patient does have sore throat with positive strep. Patient placed on antibiotics and can be discharged home Disposition Clinical Impression: Acute streptococcal pharyngitis Disposition: HOME SELF-CARE Condition: Good Instructions (If sedation given, give patient instructions): Strep Throat (ED) Prescriptions: Azithromycin [Zithromax Z-pack (6 tabs)] 0 mg PO DIRECTED 5 Days #6 tab Is patient prescribed a controlled substance at d/c from ED?: No Referrals: Camilo Ferreira MD [Primary Care Provider] - 1-2 days
[2021-07-05] MEDS ORDERED: AZITHROMYCIN 500 MG TAB PO STA (06:09)
[2021-07-05 06:39] VITALS: BP 125/75; PULSE 92; TEMP 98.9
== END 2021-07-05 06:39 | disposition home or self-care (01) ==
LOC: EC 05:23
DX: J02.0 Streptococcal pharyngitis (principal); R19.7 Diarrhea, unspecified; F17.200 Nicotine dependence, unspecified, uncomplicated; J45.909 Unspecified asthma, uncomplicated; Z88.0 Allergy status to penicillin; Z88.5 Allergy status to narcotic agent
CPT/HCPCS: 99283; 96372; J1100